=== PATIENT | male | born 1945 | race Caucasian/White ===

== ENCOUNTER 2018-01-13 13:56 | Outpatient (CLI) | payer BC, SELFPAY ==
[2018-01-13 14:23] LABS: Abs Immature Grans 0.01 k/cumm (0.0-0.09); Absolute Basophil Count 0.03 k/cumm (0.0-0.2); Absolute Lymphocyte Count 1.02 k/cumm (1.2-3.4); Absolute Monocyte Count 0.35 k/cumm (0.11-0.7); Absolute Neutrophil Count 3.53 k/cumm (1.2-6.7); Basophils % 0.6; HCT 41.1 % (40.0-50.0); HGB 13.8 g/dL (13.5-17.5); Immature Grans % 0.2; Lymphocytes % 20.2; Mean Corp. HGB Concentration 33.6 g/dL (32.0-36.0); Mean Corpuscular Hemoglobin 33.3 pg (27.0-33.0); Mean Platelet Volume 10.1 fL (8.0-11.0); Monocytes % 6.9; Neutrophils % 70.1; Platelet Count 186 x1000/uL (130-400); RBC 4.15 m/cumm (4.50-6.00); RBC Distribution Width 13.1 % (11.8-14.1); White Blood Cell Count 5.04 k/cumm (4.4-10.8)
[2018-01-13 14:35] LABS: ALT 46 U/L (12-78); AST 27 U/L (15-37); Albumin 3.3 g/dL (3.4-5.0); Alkaline Phosphatase 101 U/L (46-116); Anion Gap 7.7 mmol/L (3-11); BUN 17 mg/dL (7-18); Bilirubin, Total 0.3 mg/dL (0.2-1.0); CO2 29.3 mmol/L (21.0-32.0); CREATININE 1.28 mg/dL (0.70-1.30); Calcium 9.1 mg/dL (8.5-10.1); Chloride 103 mmol/L (98-107); Estimated GFR 54.94 (mL/min/1.73m2); Glucose 146 mg/dL (70-100); Potassium 3.6 mmol/L (3.5-5.1); Sodium 140 mmol/L (136-145); Total Protein 7.2 g/dL (6.4-8.2)
[2018-01-14 09:29] LABS: PSA, Diagnostic <0.1 ng/ml (0-6.5)
[2018-01-15 07:41] LABS: Testosterone, Total <7.0 ng/dL (240-950)
== END 2018-01-13 14:16 ==
PROVIDERS: PCP Emergency Medicine; Visit Provider Internal Medicine
DX: C61 Malignant neoplasm of prostate (principal)
CPT/HCPCS: 36415; 80053; 84403; 84153; 85025

== ENCOUNTER 2018-04-19 11:51 | Outpatient (CLI) | payer BC, MEDICARE, SELFPAY ==
[2018-04-19 12:25] LABS: ALT 46 U/L (12-78); AST 24 U/L (15-37); Albumin 3.4 g/dL (3.4-5.0); Alkaline Phosphatase 110 U/L (46-116); Anion Gap 10.4 mmol/L (3-11); BUN 16 mg/dL (7-18); Bilirubin, Total 0.3 mg/dL (0.2-1.0); CO2 27.6 mmol/L (21.0-32.0); CREATININE 1.31 mg/dL (0.70-1.30); Chloride 105 mmol/L (98-107); Estimated GFR 53.49 (mL/min/1.73m2); Glucose 109 mg/dL (70-100); Potassium 3.9 mmol/L (3.5-5.1); Sodium 143 mmol/L (136-145); Total Protein 7.1 g/dL (6.4-8.2)
[2018-04-19 12:35] LABS: HCT 40.7 % (40.0-50.0); HGB 13.4 g/dL (13.5-17.5); Mean Corp. HGB Concentration 32.9 g/dL (32.0-36.0); Mean Corpuscular Hemoglobin 31.9 pg (27.0-33.0); Mean Corpuscular Volume 96.9 fL (80-95)
[2018-04-19 12:36] LABS: Absolute Basophil Count 0.05 k/cumm (0.0-0.2); Absolute Eosinophil Count 0.05 k/cumm (0.0-0.7); Absolute Lymphocyte Count 1.24 k/cumm (1.2-3.4); Absolute Monocyte Count 0.32 k/cumm (0.11-0.7); Absolute Neutrophil Count 2.94 k/cumm (1.2-6.7); Atypical Lymphocytes % 3; Diff Comment Manual Differential; Mean Platelet Volume 11.2 fL (8.0-11.0); Platelet Count 197 x1000/uL (130-400); RBC Distribution Width 13.3 % (11.8-14.1); RBC Morphology Normal
[2018-04-20 09:16] LABS: PSA, Diagnostic <0.1 ng/ml (0-6.5)
[2018-04-22 14:34] LABS: Testosterone, Total 60 ng/dL (240-950)
== END 2018-04-19 12:11 ==
PROVIDERS: PCP Emergency Medicine; Visit Provider Internal Medicine
DX: C61 Malignant neoplasm of prostate (principal)
CPT/HCPCS: 36415; 80053; 84403; 84153; 85025

== ENCOUNTER 2018-10-10 15:57 | Outpatient (CLI) | payer BC, MEDICARE, SELFPAY ==
[2018-10-10 16:53] LABS: Abs Immature Grans 0.01 k/cumm (0.0-0.09); Absolute Basophil Count 0.03 k/cumm (0.0-0.2); Absolute Lymphocyte Count 1.31 k/cumm (1.2-3.4); Absolute Monocyte Count 0.45 k/cumm (0.11-0.7); Absolute Neutrophil Count 3.23 k/cumm (1.2-6.7); Basophils % 0.6; Eosinophils % 1.9; HCT 40.3 % (40.0-50.0); HGB 13.6 g/dL (13.5-17.5); Immature Grans % 0.2; Lymphocytes % 25.5; Mean Corp. HGB Concentration 33.7 g/dL (32.0-36.0); Mean Corpuscular Volume 94.8 fL (80-95); Mean Platelet Volume 10.6 fL (8.0-11.0); Monocytes % 8.8; Platelet Count 206 x1000/uL (130-400); RBC 4.25 m/cumm (4.50-6.00); RBC Distribution Width 13.6 % (11.8-14.1); White Blood Cell Count 5.13 k/cumm (4.4-10.8)
[2018-10-10 17:24] LABS: ALT 38 U/L (12-78); AST 18 U/L (15-37); Albumin 3.7 g/dL (3.4-5.0); Alkaline Phosphatase 116 U/L (46-116); Anion Gap 8.1 mmol/L (3-11); BUN 19 mg/dL (7-18); Bilirubin, Total 0.2 mg/dL (0.2-1.0); CO2 27.9 mmol/L (21.0-32.0); CREATININE 1.29 mg/dL (0.70-1.30); Calcium 9.3 mg/dL (8.5-10.1); Chloride 107 mmol/L (98-107); Glucose 111 mg/dL (70-100); Potassium 3.9 mmol/L (3.5-5.1); Sodium 143 mmol/L (136-145)
[2018-10-12 10:59] LABS: PSA, Diagnostic <0.1 ng/ml (0-6.5)
[2018-10-13 11:00] LABS: Testosterone, Total 225 ng/dL (240-950)
== END 2018-10-10 16:17 ==
PROVIDERS: PCP Emergency Medicine; Visit Provider Internal Medicine
DX: C61 Malignant neoplasm of prostate (principal)
CPT/HCPCS: 36415; 80053; 84403; 84153; 85025

== ENCOUNTER 2018-12-27 13:35 | Outpatient (CLI) | payer BC, MEDICARE, SELFPAY ==
[2018-12-27 14:34] LABS: Abs Immature Grans 0.01 k/cumm (0.0-0.09); Absolute Basophil Count 0.02 k/cumm (0.0-0.2); Absolute Eosinophil Count 0.07 k/cumm (0.0-0.7); Absolute Monocyte Count 0.34 k/cumm (0.11-0.7); Absolute Neutrophil Count 3.33 k/cumm (1.2-6.7); Basophils % 0.4; Eosinophils % 1.4; HCT 41.4 % (40.0-50.0); HGB 13.9 g/dL (13.5-17.5); Immature Grans % 0.2; Lymphocytes % 24.1; Mean Corp. HGB Concentration 33.6 g/dL (32.0-36.0); Mean Corpuscular Hemoglobin 32.4 pg (27.0-33.0); Mean Corpuscular Volume 96.5 fL (80-95); Mean Platelet Volume 10.5 fL (8.0-11.0); Monocytes % 6.8; Neutrophils % 67.1; Platelet Count 234 x1000/uL (130-400); RBC 4.29 m/cumm (4.50-6.00); RBC Distribution Width 13.3 % (11.8-14.1); White Blood Cell Count 4.97 k/cumm (4.4-10.8)
[2018-12-27 14:38] LABS: ALT 38 U/L (16-63); AST 21 U/L (15-37); Albumin 3.5 g/dL (3.4-5.0); Alkaline Phosphatase 91 U/L (46-116); Anion Gap 7.4 mmol/L (3-11); BUN 16 mg/dL (7-18); Bilirubin, Total 0.3 mg/dL (0.2-1.0); CO2 31.6 mmol/L (21.0-32.0); CREATININE 1.43 mg/dL (0.70-1.30); Calcium 8.9 mg/dL (8.5-10.1); Chloride 106 mmol/L (98-107); Estimated GFR 48.21 (mL/min/1.73m2); Glucose 108 mg/dL (70-100); Potassium 3.8 mmol/L (3.5-5.1); Sodium 145 mmol/L (136-145); Total Protein 7.1 g/dL (6.4-8.2)
[2018-12-28 10:20] LABS: PSA, Diagnostic <0.1 ng/ml (0-6.5)
[2018-12-30 10:38] LABS: Testosterone, Total 273 ng/dL (240-950)
== END 2018-12-27 13:55 ==
PROVIDERS: PCP Emergency Medicine; Visit Provider Internal Medicine
DX: C61 Malignant neoplasm of prostate (principal)
CPT/HCPCS: 36415; 80053; 84403; 84153; 85025

== ENCOUNTER 2019-04-06 15:22 | Outpatient (CLI) | payer BC, SELFPAY ==
[2019-04-06 15:57] LABS: Abs Immature Grans 0.01 k/cumm (0.0-0.09); Absolute Basophil Count 0.03 k/cumm (0.0-0.2); Absolute Eosinophil Count 0.15 k/cumm (0.0-0.7); Absolute Lymphocyte Count 1.37 k/cumm (1.2-3.4); Absolute Monocyte Count 0.49 k/cumm (0.11-0.7); Absolute Neutrophil Count 2.94 k/cumm (1.2-6.7); Basophils % 0.6; HCT 40.9 % (40.0-50.0); HGB 13.9 g/dL (13.5-17.5); Immature Grans % 0.2 %; Lymphocytes % 27.5; Mean Corpuscular Hemoglobin 32.9 pg (27.0-33.0); Mean Corpuscular Volume 96.7 fL (80-95); Mean Platelet Volume 10.4 fL (8.0-11.0); Monocytes % 9.8; Neutrophils % 58.9; Platelet Count 247 x1000/uL (130-400); RBC 4.23 m/cumm (4.50-6.00); RBC Distribution Width 13.6 % (11.8-14.1); White Blood Cell Count 4.99 k/cumm (4.4-10.8)
[2019-04-06 16:28] LABS: ALT 39 U/L (16-63); AST 24 U/L (15-37); Albumin 3.5 g/dL (3.4-5.0); Alkaline Phosphatase 127 U/L (46-116); Anion Gap 10.3 mmol/L (3-11); BUN 14 mg/dL (7-18); Bilirubin, Total 0.3 mg/dL (0.2-1.0); CO2 27.7 mmol/L (21.0-32.0); CREATININE 1.37 mg/dL (0.70-1.30); Calcium 8.8 mg/dL (8.5-10.1); Chloride 107 mmol/L (98-107); Estimated GFR 50.66 (mL/min/1.73m2); Glucose 113 mg/dL (74-106); Potassium 3.8 mmol/L (3.5-5.1); Sodium 145 mmol/L (136-145); Total Protein 6.7 g/dL (6.4-8.2)
[2019-04-07 10:28] LABS: PSA, Diagnostic <0.1 ng/mL (0.0-6.5)
[2019-04-09 17:05] LABS: Testosterone, Total 244 ng/dL (240-950)
== END 2019-04-06 15:42 ==
PROVIDERS: PCP Emergency Medicine; Visit Provider Internal Medicine
DX: C61 Malignant neoplasm of prostate (principal)
CPT/HCPCS: 36415; 80053; 84403; 84153; 85025

== ENCOUNTER 2019-07-13 00:54 | Outpatient (CLI) | payer BC, SELFPAY ==
--- NOTE | 2019-07-13 11:30 | DI.CT_ITS ---
EXAM: CT ABDOMEN AND PELVIS W CLINICAL HISTORY: LOW ABD PAIN AND PROSTATE CANCER, C61 TECHNIQUE: Imaging Protocol: Axial computed tomography images with coronal and sagittal reformatted images were created and reviewed CONTRAST MATERIAL: Intravenous: Omnipaque 350 Contrast volume:100 mL Oral: Yes COMPARISON: No exams were available for comparison FINDINGS: ABDOMEN: Lung Bases: Normal where visualized. Liver: Normal density. There are 4 well-circumscribed nonenhancing hypodense lesions scattered in the liver most consistent with cysts. No suspicious masses are appreciated. Portal, Superior Mesenteric, and Splenic Veins: Unremarkable. Gallbladder and Biliary Tract: Cholelithiasis. No biliary ductal dilatation. Pancreas: Normal density, no abnormal calcifications or inflammatory process. Spleen: Normal. Adrenals: No masses seen. Kidneys: Normal size, contour and axis. No radiodense stones or obstructive uropathy. No masses seen. Abdominal Aorta: Abdominal portion non-dilated. Atherosclerosis. Bowel: No obstruction or bowel wall thickening. Appendix is unremarkable. Colonic diverticulosis. Th ere is stranding seen associated with the soft tissues interposed between the sigmoid colon and the a djacent urinary bladder. Peritoneal Cavity: No ascites, collection or mesenteric inflammatory response. Lymph Nodes: Within normal limits. Bones: Degenerative changes are present. Soft Tissues: Fat-containing right inguinal hernia. PELVIS: Bladder: Incompletely distended. There is diffuse thickening of the wall of the urinary bladder. Ther e is inflammatory stranding seen around the urinary bladder. Reproductive Organs: Radiation seeds are seen within the prostate. Lymph Nodes: Within normal limits. Bones: Degenerative changes are present. IMPRESSION: 1. No evidence of metastatic disease. 2. Thickening of the wall of the urinary bladder. Inflammatory stranding seen around the urinary blad audrey and interposed between the sigmoid colon and the urinary bladder. This may reflect an infectious/ inflammatory cystitis, a mild colonic diverticulitis or post therapeutic changes. Please correlate cl inically. RADIATION DOSE DELIVERED: Total DLP DATA REPOSITORY: All CT scans at this facility are submitted to the National Radiology Data Registry (NRDR) Dose Index Registry (DIR) with the [employer] (ACR). RADIATION OPTIMIZATION: All CT scans at this facility use at least one of these dose optimization te chniques: automated exposure control; mA and/or kV adjustment per patient size (includes targeted exa ms where dose is matched to clinical indication); or iterative reconstruction.
[2019-07-13] MEDS: Breeza Beverage 473 ML BTL PO ×2 (11:43→11:44)
[2019-07-13] MEDS: Omnipaque 350 MG/ML 50 ML BTL PO (11:44)
[2019-07-13 12:54] LABS: HCT 42.4 % (40.0-50.0); HGB 14.2 g/dL (13.5-17.5); Mean Corp. HGB Concentration 33.5 g/dL (32.0-36.0); Mean Corpuscular Hemoglobin 32.3 pg (27.0-33.0); Mean Corpuscular Volume 96.4 fL (80-95); Mean Platelet Volume 9.6 fL (8.0-11.0); Platelet Count 260 x1000/uL (130-400); RBC Distribution Width 13.1 % (11.8-14.1); White Blood Cell Count 5.69 k/cumm (4.4-10.8)
[2019-07-13 13:03] LABS: ALT 45 U/L (16-63); AST 26 U/L (15-37); Albumin 3.5 g/dL (3.4-5.0); Alkaline Phosphatase 90 U/L (46-116); Anion Gap 4.4 mmol/L (3-11); BUN 10 mg/dL (7-18); Bilirubin, Total 0.4 mg/dL (0.2-1.0); CO2 30.6 mmol/L (21.0-32.0); CREATININE 1.28 mg/dL (0.70-1.30); Calcium 8.7 mg/dL (8.5-10.1); Chloride 103 mmol/L (98-107); Estimated GFR 54.79 (mL/min/1.73m2); Glucose 106 mg/dL (74-106); Potassium 3.8 mmol/L (3.5-5.1); Sodium 138 mmol/L (136-145); Total Protein 7.6 g/dL (6.4-8.2)
[2019-07-13] MEDS: Omnipaque 350 MG/ML 100 ML BTL IJ (13:41)
[2019-07-13 13:51] LABS: Bilirubin Negative (Negative); Blood Negative (Negative); Clarity Clear (Clear); Glucose Negative (Negative); Ketones Negative (Negative); Leukocyte Esterase Negative (Negative); Nitrite Negative (Negative); Specific Gravity 1.025 (1.005-1.025); Urobilinogen 0.2 EU/dL (Up TO 0.2); pH 6.5 (5-8)
[2019-07-13 14:20] LABS: Bacteria Negative HPF (Negative); C & S Indicated? No; Casts Negative LPF (Negative); Crystals Negative HPF (Negative); Epithelial Cells Negative HPF (Negative); Mucus Heavy (Negative); Other Cells Rare Renal (Negative); RBC 0-2 HPF (0-2)
[2019-07-14 09:19] LABS: PSA, Diagnostic <0.1 ng/mL (0.0-6.5)
== END 2019-07-13 01:14 ==
PROVIDERS: PCP Emergency Medicine; Visit Provider Emergency Medicine
DX: C61 Malignant neoplasm of prostate (principal); R30.0 Dysuria; R10.30 Lower abdominal pain, unspecified; K76.89 Other specified diseases of liver; K80.20 Calculus of gallbladder without cholecystitis without obstruction; N32.89 Other specified disorders of bladder
CPT/HCPCS: 36415; 80053; 85027; 74177; 81003; 81015; 84153; J3490; Q9967

== ENCOUNTER 2019-08-18 08:23 | Day surgery (SDC) | payer BC, SELFPAY ==
[2019-08-18 08:47] VITALS: BP 130/70; PULSE 75; RESP 16; TEMP 36.6; O2SAT 94
[2019-08-18] MEDS: Lactated Ringers 1,000 ML 80 ML IV (09:04)
--- NOTE | 2019-08-18 09:35 | W.PM.DSUDISC ---
Discharge Plan Disposition Patient Disposition: HOME Condition: Good Discharge Details Reason For Visit: Colonoscopy Attending Provider: Ekta Oneill Primary Care Provider: Geovanni Ramos Home Meds and New Rx's Prescriptions: Continued diclofenac sodium [Voltaren] 100 GM gel 100 gm Topical BID Qty: 1 RF: 4 tamsulosin [Flomax] 0.4 MG capsule 0.8 mg PO DAILY Qty: 180 RF: 3 triamcinolone acetonide 80 GM ointment 80 gm Topical BID Qty: 1 RF: 4 amlodipine 5 mg tablet 5 mg PO DAILY Qty: 90 RF: 4 rosuvastatin [Crestor] 10 mg tablet 10 mg PO DAILY Qty: 90 RF: 3 escitalopram oxalate 20 mg tablet 20 mg PO DAILY Qty: 90 RF: 3 Discontinued polyethylene glycol 3350 17 gram/dose powder 238 g PO ONCE Qty: 238 RF: 0 bisacodyl [Dulcolax (bisacodyl)] 5 mg tablet,delayed release (DR/EC) 5 mg PO ONCE Qty: 4 RF: 0 Discharge Instructions Additional Instructions: Findings: Three small polyps were removed. My office will contact you with biopsy results. Moderate diverticular change was present in the sigmoid colon and may be related to your lower abdominal discomfort. Follow up: Plan for a follow up colonoscopy in 3-5 years depending on biopsy results. Please call if you develop: fevers >101.5 Nausea or Vomiting Abdominal pain that is not transient DAY SURGERY UNIT POST COLONOSCOPY INSTRUCTIONS 1. Because there will be medication in your system for the next 24 hours, you may feel a little sleepy. Your coordination will be affected. Therefore: a. Do not drive or operate dangerous equipment for 24 hours. b. Do not drink alcohol beverages for 24 hours (not even beer). c. Plan to go home and rest for the day. 2. Generally there are no restrictions on your activity after a day or so has gone by, but you may feel a bit fatigued for a few days. 3 After you arrive home you may have a light meal and return to a normal diet as you can tolerate it without feeling sick to your stomach. 4. After surgery, you may feel pain or discomfort. This should be only transient, but if it persists please contact your doctor. 5. If there are any questions regarding the findings of your procedure, please feel free to contact your doctor. 6. If you are unable to contact your doctor with a problem, contact the hospital at [phone]. 9. Continue all your regular medications unless directed otherwise. I understand the above instructions and have no questions. Signature of Patient or Responsible Adult Escort Date/Time Name of Responsible Adult Escort Signature of Nurse Date/Time Activity:: Activity as Tolerated Diet:: As Tolerated Discharge Orders Discharge Orders: Discharge Order (Routine); Ordered 08/18/19 Ordered By: Ekta Oneill DS: Diagnosis Discharge Diagnosis (1) Polyp of colon: Status: Acute (2) Diverticulosis: Status: Acute
--- NOTE | 2019-08-18 09:37 | W.PM.OP ---
Date of service: 08/18/19 Time of Service: 10:33 Operative Note Operative Note DATE OF PROCEDURE: 08/18/19 PRE-OP DIAGNOSIS: History of polyps Lower abdominal pain Colon polyps Diverticulosis PROCEDURE: Colonoscopy SURGEON: Ekta Oneill ANESTHESIA: MAC Indications: This patient had colon polyps in 2012. He has noted some lower abdominal discomfort that is relieved by having a bowel movement. Procedure Description: The patient was placed in the left Fu position. Propofol was titrated to sedation. Digital rectal examination revealed no abnormalities. The scope was advanced to the cecum without difficulty. The ileocecal valve and appendiceal orifice were clearly identified. The prep was good. In the cecum near the appendiceal orifice a less than 1 cm polyp was removed with the snare and retrieved for pathology. Minimal cautery was used here and a hemostatic clip applied. There was an additional less than 1 cm polyp across from the ileocecal valve that was removed with the snare and retrieved and sent in the same specimen container. In the mid ascending colon a third less than 1 cm polyp was removed with the snare and retrieved for pathology. No abnormalities were seen through the transverse or descending colon. In the sigmoid region he had moderate diverticular change with some hyperemia of the mucosa. This may be reflect some mild resolving inflammation. The rectum was normal including on retroflexed view. The patient tolerated the procedure well and was stable to recovery. Plan for follow up colonoscopy in 5 years or sooner if symptoms indicate. If his symptoms persist, he can try a course of antibiotics or also consider follow up with urology.
--- NOTE | 2019-08-18 09:59 | BOWEL_PTH ---
PATIENT: Glen Schulte JR LOC: [facility] U#:[id number] AGE/SX: 73/M ROOM: RE08/18/[address]: Ekta Oneill MD : 1945 BED: DIS: 08/18/2019 SPEC #: [id number] RECD: 08/18/19 11:58 STATUS: ARSALAN REQ #: [id number] NATHALIE: 08/18/19 09:[address]: Ekta Oneill DEPT: Surgical Specimen RECD BY: Shea Rodriguez ENTERED: 08/18/19 11:59 SP TYPE: Bowel OTHR DR: Geovanni Ramos DO Tissues: 1 - BIOPSY BOWEL 2 - BIOPSY BOWEL Procedures: GROSS AND MICRO LEVEL 4 Comments: [id number]
[2019-08-18 10:58] VITALS: BP 104/51; PULSE 62; RESP 16; TEMP 36.2; O2SAT 93
== END 2019-08-18 11:45 | disposition home or self-care (01) ==
PROVIDERS: PCP Emergency Medicine; Visit Provider Surgery
PROC: 0DJD8ZZ Inspection of Lower Intestinal Tract, Via Natural or Artificial Opening Endoscopic (ICD-10-PCS; CPT 45378; principal; 2019-08-18 09:45)
DX: Z12.11 Encounter for screening for malignant neoplasm of colon (principal); Z86.010 Personal history of colon polyps; R10.30 Lower abdominal pain, unspecified; K57.30 Diverticulosis of large intestine without perforation or abscess without bleeding; D12.0 Benign neoplasm of cecum; D12.2 Benign neoplasm of ascending colon
CPT/HCPCS: 45385; 88305; J2704

== ENCOUNTER 2019-08-29 00:18 | Outpatient (CLI) | payer BC, SELFPAY ==
--- NOTE | 2019-08-29 06:30 | DI.US_ITS ---
EXAM: US ABDOMEN CLINICAL HISTORY: Epigastric pain,R10.13 TECHNIQUE: Ultrasound performed using standard protocol. COMPARISON: CT CT ABDOMEN PELVIS W from 07/13/2019 FINDINGS: The liver is enlarged and shows increased echogenicity, consistent with fatty infiltration. Liver c ysts are again noted. The there is no biliary dilatation. The gallbladder shows multiple stones but no wall thickening. There is echogenic focus in the gallbladder wall with ring down artifact which may represent adenomyomatosis. The visualized portions of the pancreas are unremarkable. IMPRESSION: Cholelithiasis. No evidence of acute cholecystitis. Hepatic steatosis. DATA REPOSITORY:
== END 2019-08-29 00:38 ==
PROVIDERS: PCP Emergency Medicine; Visit Provider Surgery
DX: R10.13 Epigastric pain (principal); K80.20 Calculus of gallbladder without cholecystitis without obstruction; K76.0 Fatty (change of) liver, not elsewhere classified
CPT/HCPCS: 76700

== ENCOUNTER 2019-10-10 03:28 | Outpatient (CLI) | payer BC, SELFPAY ==
[2019-10-10 13:36] LABS: Abs Immature Grans 0.04 10^3/uL (0.0-0.06); Absolute Basophil Count 0.03 10^3/uL (0.0-0.2); Absolute Lymphocyte Count 1.43 10^3/uL (1.2-3.4); Absolute Monocyte Count 0.61 10^3/uL (0.1-0.8); Absolute Neutrophil Count 8.44 10^3/uL (1.2-6.7); Basophils % 0.3; Eosinophils % 0.9; HCT 40.8 % (40.0-50.0); HGB 13.9 g/dL (13.5-17.5); Immature Grans % 0.4; Lymphocytes % 13.4; MCH 32.8 pg (27.0-33.0); MCHC 34.1 % (32.0-36.0); MCV 96.2 fL (80-95); MPV 9.9 fL (8.0-11.0); Monocytes % 5.7; Neutrophils % 79.3 %; Platelet Count 256 10^3/uL (130-400); RBC 4.24 10^6/uL (4.36-5.78); RDW 13.3 % (11.8-14.1); RDW-SD 47.6 fL; WBC 10.65 10^3/uL (4.4-10.8)
[2019-10-10 14:39] LABS: ALT 33 U/L (16-63); AST 21 U/L (15-37); Albumin 3.6 g/dL (3.4-5.0); Alkaline Phosphatase 84 U/L (46-116); Anion Gap 10.2 mmol/L (3-11); BUN 18 mg/dL (7-18); Bilirubin, Total 0.3 mg/dL (0.2-1.0); CO2 26.8 mmol/L (21.0-32.0); CREATININE 1.31 mg/dL (0.70-1.30); Calcium 8.7 mg/dL (8.5-10.1); Chloride 104 mmol/L (98-107); Glucose 161 mg/dL (74-106); Potassium 3.8 mmol/L (3.5-5.1); Sodium 141 mmol/L (136-145); Total Protein 6.7 g/dL (6.4-8.2)
[2019-10-11 18:51] LABS: PSA, Ultrasensitive 0.08 ng/mL (<= 6.5)
[2019-10-13 14:12] LABS: Testosterone, Total 252 ng/dL (240-950)
== END 2019-10-10 03:48 ==
PROVIDERS: PCP Emergency Medicine; Visit Provider Internal Medicine
DX: Z85.46 Personal history of malignant neoplasm of prostate (principal)
CPT/HCPCS: 36415; 80053; 84153; 84403; 85025

== ENCOUNTER 2019-10-19 13:26 | Outpatient (REF) | payer BC, SELFPAY ==
[2019-10-20 11:02] LABS: Campylobacter PCR Negative (Negative); Salmonella PCR Negative (Negative); Shiga Toxin PCR Negative (Negative); Shigella/Enteroinvasive Ecoli Negative (Negative)
== END 2019-10-19 13:46 ==
LOC: LBN 13:26
PROVIDERS: PCP Emergency Medicine; Visit Provider Emergency Medicine
DX: R19.7 Diarrhea, unspecified (principal); R10.13 Epigastric pain
CPT/HCPCS: 87329; 87505; 87324

== ENCOUNTER 2019-10-31 02:37 | Outpatient (CLI) | payer BC, SELFPAY ==
[2019-11-01 15:51] LABS: IgA 168 mg/dL (85-499); Interpretation (See Note); Tissue Transglutaminase IgA <1.2 U/mL (<4.0)
[2019-11-03 10:50] LABS: Campylobacter PCR Negative (Negative); Salmonella PCR Negative (Negative); Shiga Toxin PCR Negative (Negative); Shigella/Enteroinvasive Ecoli Negative (Negative)
== END 2019-10-31 02:57 ==
PROVIDERS: PCP Emergency Medicine; Visit Provider Surgery
DX: R19.4 Change in bowel habit (principal); R10.30 Lower abdominal pain, unspecified
CPT/HCPCS: 36415; 82784; 83516; 87505; 87324

== ENCOUNTER 2020-01-23 12:54 | Outpatient (CLI) | payer BC, SELFPAY ==
[2020-01-23 13:18] LABS: Abs Immature Grans 0.01 10^3/uL (0.0-0.06); Absolute Basophil Count 0.04 10^3/uL (0.0-0.2); Absolute Lymphocyte Count 1.26 10^3/uL (1.2-3.4); Absolute Monocyte Count 0.48 10^3/uL (0.1-0.8); Absolute Neutrophil Count 3.36 10^3/uL (1.2-6.7); Basophils % 0.8; Eosinophils % 1.9; HCT 42.7 % (40.0-50.0); HGB 14.5 g/dL (13.5-17.5); Immature Grans % 0.2; MCH 32.7 pg (27.0-33.0); MCV 96.2 fL (80-95); MPV 10.3 fL (8.0-11.0); Monocytes % 9.1; Nucleated RBC 0 %; Platelet Count 215 10^3/uL (130-400); RBC 4.44 10^6/uL (4.36-5.78); RDW-SD 46.5 fL; WBC 5.25 10^3/uL (4.4-10.8)
[2020-01-23 13:29] LABS: ALT 35 U/L (16-63); AST 24 U/L (15-37); Albumin 3.6 g/dL (3.4-5.0); Alkaline Phosphatase 76 U/L (46-116); Anion Gap 7.3 mmol/L (3-11); BUN 12 mg/dL (7-18); Bilirubin, Total 0.5 mg/dL (0.2-1.0); CO2 28.7 mmol/L (21.0-32.0); CREATININE 1.23 mg/dL (0.70-1.30); Calcium 8.7 mg/dL (8.5-10.1); Chloride 106 mmol/L (98-107); Estimated GFR 57.21 (mL/min/1.73m2); Glucose 107 mg/dL (74-106); Potassium 3.7 mmol/L (3.5-5.1); Sodium 142 mmol/L (136-145)
[2020-01-24 16:25] LABS: PSA, Ultrasensitive 0.14 ng/mL (<= 6.5)
[2020-01-26 13:01] LABS: Testosterone, Total 308 ng/dL (240-950)
== END 2020-01-23 13:14 ==
PROVIDERS: PCP Emergency Medicine; Visit Provider Internal Medicine
DX: C61 Malignant neoplasm of prostate (principal)
CPT/HCPCS: 36415; 80053; 84153; 84403; 85025

== ENCOUNTER 2021-07-14 02:44 | Outpatient (CLI) | payer BC, SELFPAY ==
[2021-07-14 12:27] LABS: Bilirubin Negative (Negative); Blood Negative (Negative); Clarity Clear (Clear); Glucose Negative (Negative); HCT 43.6 % (40.0-50.0); HGB 14.8 g/dL (13.5-17.5); Ketones Negative (Negative); Leukocyte Esterase Negative (Negative); MCH 33.4 pg (27.0-33.0); MCHC 33.9 % (32.0-36.0); MCV 98 fL (80-95); MPV 11.2 fL (8.0-11.0); Nitrite Negative (Negative); Platelet Count 207 10^3/uL (130-400); RBC 4.43 10^6/uL (4.36-5.78); Specific Gravity >= 1.030 (1.005-1.025); Urobilinogen 0.2 EU/dL (Up TO 0.2); WBC 5.16 10^3/uL (4.4-10.8); pH 5.5 (5-8)
[2021-07-14 12:51] LABS: ALT 39 U/L (16-63); AST 25 U/L (15-37); Albumin 3.7 g/dL (3.4-5.0); Alkaline Phosphatase 97 U/L (46-116); Anion Gap 8.8 mmol/L (3-11); BUN 21 mg/dL (7-18); Bilirubin, Total 0.6 mg/dL (0.2-1.0); C-Reactive Protein 0.27 mg/dL (0.0-0.3); CO2 28.2 mmol/L (21.0-32.0); CREATININE 1.4 mg/dL (0.70-1.30); Calculated LDL 32 mg/dL (<100); Chloride 106 mmol/L (98-107); Cholesterol 133 mg/dL (<200); Estimated GFR 49.14 (mL/min/1.73m2); Glucose 97 mg/dL (74-106); HDL Cholesterol 51 mg/dL (40-60); Lipase 298 U/L (73-393); Potassium 4.3 mmol/L (3.5-5.1); Sodium 143 mmol/L (136-145); Total Protein 6.7 g/dL (6.4-8.2); Triglyceride 254 mg/dL (<150)
[2021-07-14 13:04] LABS: Amylase 105 U/L (25-115)
[2021-07-14 22:12] LABS: PSA, Diagnostic 0.4 ng/mL (<=6.5)
== END 2021-07-14 02:45 | disposition home or self-care (01) ==
LOC: LOS 02:44
PROVIDERS: PCP Family Medicine; Visit Provider Emergency Medicine
DX: R53.83 Other fatigue (principal); E78.5 Hyperlipidemia, unspecified; I10 Essential (primary) hypertension; C61 Malignant neoplasm of prostate; R30.0 Dysuria
CPT/HCPCS: 36415; 80053; 80061; 83690; 85027; 81003; 82150; 84153; 86140

== ENCOUNTER 2021-12-18 02:26 | Outpatient (CLI) | payer BC, SELFPAY ==
[2021-12-18 22:32] LABS: PSA, Diagnostic 0.7 ng/mL (<=6.5)
== END 2021-12-18 02:27 | disposition home or self-care (01) ==
LOC: LOS 02:26
PROVIDERS: PCP Family Medicine; Visit Provider Family Medicine
DX: Z85.46 Personal history of malignant neoplasm of prostate (principal)
CPT/HCPCS: 36415; 84153

== ENCOUNTER 2022-08-28 02:46 | Outpatient (CLI) | payer BC, SELFPAY ==
[2022-08-28 12:18] LABS: Abs Immature Grans 0.01 10^3/uL (0.0-0.06); Absolute Basophil Count 0.03 10^3/uL (0.0-0.2); Absolute Lymphocyte Count 1.79 10^3/uL (1.2-3.4); Absolute Neutrophil Count 3.16 10^3/uL (1.2-6.7); Basophils % 0.5; Eosinophils % 1.8; HCT 43.1 % (40.0-50.0); HGB 15.3 g/dL (13.5-17.5); Immature Grans % 0.2; MCH 34.6 pg (27.0-33.0); MCHC 35.5 % (32.0-36.0); MCV 98 fL (80-95); MPV 9.8 fL (8.0-11.0); Monocytes % 8.9; Neutrophils % 56.6; Platelet Count 210 10^3/uL (130-400); RBC 4.42 10^6/uL (4.36-5.78); RDW 11.9 % (11.8-14.1); RDW-SD 42.9 fL; WBC 5.59 10^3/uL (4.4-10.8)
[2022-08-28 12:25] LABS: ESR 4 mm/hr (0-20)
[2022-08-28 12:57] LABS: Albumin 3.5 g/dL (3.4-5.0); Alkaline Phosphatase 90 U/L (46-116); Anion Gap 10.4 mmol/L (3-11); BUN 15 mg/dL (7-18); Bilirubin, Total 0.3 mg/dL (0.2-1.0); CO2 26.6 mmol/L (21.0-32.0); CREATININE 1.5 mg/dL (0.70-1.30); Calcium 8.6 mg/dL (8.5-10.1); Chloride 107 mmol/L (98-107); Estimated GFR 47.06 (mL/min/1.73m2); Glucose 138 mg/dL (74-106); Potassium 3.8 mmol/L (3.5-5.1); Sodium 144 mmol/L (136-145); TSH (W/Ref FT4) 1.64 uIU/mL (0.36-3.74)
[2022-08-28 12:59] LABS: C-Reactive Protein < 0.05 mg/dL (0.0-0.3)
[2022-08-28 13:10] LABS: ALT 21 U/L (16-63); AST 14 U/L (15-37)
== END 2022-08-28 02:47 | disposition home or self-care (01) ==
LOC: LBO 02:46
PROVIDERS: PCP Family Medicine; Visit Provider Family Medicine
DX: R53.83 Other fatigue (principal)
CPT/HCPCS: 36415; 80053; 85652; 84443; 85025; 86140

== ENCOUNTER 2022-11-05 16:59 | Outpatient (REF) | payer BC, SELFPAY | END 2022-11-05 17:00 | disposition home or self-care (01) | LOC: LBN 16:59 | PROVIDERS: PCP Family Medicine; Visit Provider Nurse Practitioner Family | DX: J02.9 Acute pharyngitis, unspecified (principal) | CPT/HCPCS: 87070 ==

== ENCOUNTER 2023-03-27 18:10 | Emergency (ER) | payer BC, SELFPAY ==
--- NOTE | 2023-03-27 18:15 | DI.CT_ITS ---
Exam(s) CT HEAD CERVICAL SPINE WO EXAM: CT HEAD CERVICAL SPINE WO CLINICAL HISTORY: fell on ice, pain. TECHNIQUE: Imaging Protocol: Axial computed tomography images with coronal and sagittal reformatted images were created and reviewed COMPARISON: No exams were available for comparison FINDINGS: BRAIN: There are no skull fractures nor fluid in the visualized paranasal sinuses. There is no evidence of intracranial hemorrhage, mass effect, or shift of midline structures. There are no extra-axial fluid collections. The ventricles are not enlarged or shifted and there is no blo od within the ventricular system nor within the basal cisterns. CERVICAL SPINE: There is no evidence of fracture nor listhesis. No significant prevertebral soft tissue swelling. There is chronic disc space narrowing at C5-6 and C6-7 levels. There is some facet arthropathy but n o facet malalignment. There is no significant facet joint malalignment. No significant osseous lesions evident. Mild reversal of the normal curvature noted, probably related to muscle spasm. IMPRESSION: No acute intracranial findings on this noninfused CT scan of the brain. No evidence of cervical spine fracture, malalignment, nor acute compromise of the cervical spinal can al. Chronic degenerative disc disease noted. Called to ER physician 03/27/2023 7:15 p.m. RADIATION DOSE DELIVERED: 1,345.18mGy.cm Total DLP DATA REPOSITORY: All CT scans at this facility are submitted to the National Radiology Data Registry (NRDR) Dose Index Registry (DIR) with the [employer] (ACR). RADIATION OPTIMIZATION: All CT scans at this facility use at least one of these dose optimization te chniques: automated exposure control; mA and/or kV adjustment per patient size (includes targeted exa ms where dose is matched to clinical indication); or iterative reconstruction.
[2023-03-27 18:19] VITALS: BP 176/83; PULSE 78; RESP 16; TEMP 36.7; O2SAT 92
--- NOTE | 2023-03-27 18:27 | ED.GENADUL_ITS ---
HPI General Stated Complaint: Trauma Mode of arrival: ambulatory. MYA: 3 Date/Time Provider Initiated Documentation: 03/27/23 18:11. Limitations to Documentation: no limitations. Information obtained by: patient. History of Present Illness head pain s/p fall on ice moderate head reports no radiation hour(s) (1) constant No relieving factors improve symptom(s), No exacerbating factors reported no other symptoms. none Related Data Home Medications Medication Instructions Recorded Confirmed triamcinolone acetonide 0.025 % 80 gm topical BID ##1 07/30/17 03/27/23 topical ointment diclofenac sodium 3 % topical gel 1 applic topical BID PRN actinic 09/03/21 03/27/23 keratoses escitalopram oxalate 20 mg tablet See Rx Instructions .Route 06/26/22 03/27/23 .COMPLEX #90 tabs rosuvastatin 10 mg tablet See Rx Instructions .Route 06/26/22 03/27/23 .COMPLEX #90 tabs amlodipine 5 mg tablet 5 mg PO DAILY #90 tab-caps 08/19/22 03/27/23 tamsulosin 0.4 mg capsule (Flomax) 0.8 mg (2 x 0.4 mg) PO DAILY #180 08/19/22 03/27/23 tab-caps Previous Rx's Medication Instructions Recorded triamcinolone acetonide 0.025 % 80 gm topical BID ##1 07/30/17 topical ointment escitalopram oxalate 20 mg tablet See Rx Instructions .Route 06/26/22 .COMPLEX #90 tabs rosuvastatin 10 mg tablet See Rx Instructions .Route 06/26/22 .COMPLEX #90 tabs amlodipine 5 mg tablet 5 mg PO DAILY #90 tab-caps 08/19/22 tamsulosin 0.4 mg capsule (Flomax) 0.8 mg (2 x 0.4 mg) PO DAILY #180 08/19/22 tab-caps Allergies Allergy/AdvReac Type Severity Reaction Status Date / Time No Known Drug Allergies Allergy Verified 03/27/23 18:23 Review of Systems All systems reviewed & are unremarkable except as noted in HPI and below Constitutional Constitutional: Denies chills, Denies fever(s) and Denies weakness Cardiovascular Cardiovascular: Denies chest pain and Denies dyspnea Respiratory Respiratory: Denies cough and Denies dyspnea Gastrointestinal Gastrointestinal: Denies abdominal pain, Denies nausea and Denies vomiting Musculoskeletal Musculoskeletal: Denies joint swelling Neurologic Neurologic: Denies weakness PFSH All Active Problems (Updated 03/27/23 @ 19:30 by Cricket Mills MD) Head trauma (Acute) Asymmetrical sensorineural hearing loss (Acute) Impacted cerumen, right ear (Acute) Wears hearing aid in both ears (Chronic) Concussion (Chronic) 5 concussions due to figure skating falls 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 History of prostate cancer (Chronic) s/p radiation, followed in [place]. Tubular adenoma (Chronic) 08/18/19, Dr. Oniell, 5 year recall Asymmetrical left sensorineural hearing loss (Chronic) declines use of hearing aids Impacted cerumen of both ears (Chronic) follows with Dr. Altman Actinic keratosis (Chronic) manages with diclofenac gel 3% Essential hypertension (Chronic 12/26/12) Hyperlipidemia (Chronic) Medical History Diverticulosis Umbilical hernia Family History Grandfather Personal history of malignant neoplasm Grandfather Heart disease Grandmother Personal history of malignant neoplasm Son No problems noted. Son No problems noted. Daughter No problems noted. 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 Pets and animals: Yes Pets and animals: cat(s), dog(s), horse(s) and farm animals Sexually active: No Do you think of yourself as: bisexual Current gender identity: male What is your relationship status?: How often do you talk on the phone with friends or family?: three or more times per week How often do you get together with friends or relatives?: twice per week Do you belong to any clubs or organized social groups?: no Panel score (0-1 are the most socially isolated patients): 2 What type of physical activity do you participate in: swimming and other Details: Skating,[employer] Duration: 45-60 minutes/day Frequency: 3-4 times per week Evelyn/Zoroastrianism: None Do you feel safe at home: Yes Do you feel safe in your relationship?: Yes Additional Social history: Enjoys figure skating, hoping to ski this winter. Exam Const General: no acute distress Orientation: alert HENDC Head: no palpable skull fracture and normocephalic Ears: external ears normal General nose exam: external nose normal Mouth: moist mucous membranes Eyes General: appearance normal, both eyes and all related structures Neck Neck: normal visual inspection Resp Effort & Inspection: normal respiratory effort and able to speak in complete sentences Cardio Rate: regular rate Skin General skin exam: no rashes or lesions noted Neuro General: patient alert and patient oriented x3 Extrem General: normal to inspection Psych Mental Status: mental status grossly normal Course Vital Signs Vital signs: Vital Signs Temperature 36.7 C 03/27/23 18:19 Pulse 78 03/27/23 18:19 Respiratory Rate 16 03/27/23 18:19 Blood Pressure 176/83 H 03/27/23 18:19 Pulse Oximetry 92 03/27/23 18:19 Temperature 36.7 C 03/27/23 18:19 Pulse 78 03/27/23 18:19 Respiratory Rate 16 03/27/23 18:19 Blood Pressure 176/83 H 03/27/23 18:19 Pulse Oximetry 92 03/27/23 18:19 Oxygen Delivery Method Room Air 03/27/23 18:19 Oxygen Flow Rate 0 03/27/23 18:19 Pain Level 1 03/27/23 18:19 Medical Decision Making 77 yo male who denies being on any anticoagulation comes in after he fell ice skating. He states he is going to be going through a test for [place] figure skating and can't wear a helmet during this was practicing today skating and fell backwards striking his posterior head, question of brief loc. He denies preceding symptoms such as dizziness, chest pain or dyspnea. He feels well now and had mild posterior head pain where he has a 3cm scalp hematoma, no lacs or abrasions, has right lateral neck discomfort. No chest pain, abdomen pain or back pain or extremity pain. caox4 speaking clearly, perrl, eomi. Given age and fall will obtain ct head and c spine. imaging negative, pt asymptomatic now and is caox4 without pain, stable for d/c, advised to see pcp if signs of concussion and return preacutions given Differential Diagnosis Differential Diagnosis: tbi, concussion Imaging Data Radiologic Study: Attestation: I personally reviewed and interpreted this imaging study as follows: Imaging: CT Scan Radiologist's impression: FINDINGS: BRAIN: There are no skull fractures nor fluid in the visualized paranasal sinuses. There is no evidence of intracranial hemorrhage, mass effect, or shift of midline structures. There are no extra-axial fluid collections. The ventricles are not enlarged or shifted and there is no blood within the ventricular system nor within the basal cisterns. CERVICAL SPINE: There is no evidence of fracture nor listhesis. No significant prevertebral soft tissue swelling. There is chronic disc space narrowing at C5-6 and C6-7 levels. There is some facet arthropathy but no facet malalignment. There is no significant facet joint malalignment. No significant osseous lesions evident. Mild reversal of the normal curvature noted, probably related to muscle spasm. IMPRESSION: No acute intracranial findings on this noninfused CT scan of the brain. No evidence of cervical spine fracture, malalignment, nor acute compromise of the cervical spinal canal. Chronic degenerative disc disease noted. Quality:SDOH Health Related Social Needs: No Data to Display Discharge Plan Disposition Patient Disposition: Home Condition: Stable Discharge Details Clinical Impression: Head trauma Primary Care Provider: Elaina Beltran ED Provider: Cricket Mills [place] Meds and New Rx's Prescriptions: Continued diclofenac sodium 3 % gel 1 applic topical BID PRN (Reason: actinic keratoses) tamsulosin [Flomax] 0.4 mg capsule 0.8 mg PO DAILY Qty: 180 3RF amlodipine 5 mg tablet 5 mg PO DAILY Qty: 90 3RF triamcinolone acetonide 80 GM ointment 80 gm Topical BID Qty: 1 4RF rosuvastatin 10 mg tablet See Rx Instructions .ROUTE .COMPLEX Qty: 90 3RF Dose Instruction: TAKE ONE TABLET BY MOUTH EVERY DAY Rx Instructions: TAKE ONE TABLET BY MOUTH EVERY DAY escitalopram oxalate 20 mg tablet See Rx Instructions .ROUTE .COMPLEX Qty: 90 3RF Dose Instruction: TAKE ONE TABLET BY MOUTH EVERY DAY Rx Instructions: TAKE ONE TABLET BY MOUTH EVERY DAY Discharge Instructions Instructions: Head Injury (ED) Additional Instructions: your cat scan did not show concerning findings follow up with your primary care provider within 1-2 weeks if you have persistent headaches or issues with your memory return to the emergency department if you have severe worsening pain, or new pain such as chest pain or abdominal pain
== END 2023-03-27 19:57 | disposition home or self-care (01) ==
PROVIDERS: Emergency Provider Emergency Medicine; PCP Family Medicine
DX: S00.03XA Contusion of scalp, initial encounter (principal); M54.2 Cervicalgia; W00.0XXA Fall on same level due to ice and snow, initial encounter; Y93.21 Activity, ice skating
CPT/HCPCS: 99284; 70450; 72125; 99283

== ENCOUNTER 2024-09-14 16:09 | Outpatient (REF) | payer BC, SELFPAY ==
[2024-09-14 21:58] LABS: Anion Gap 8.4 mmol/L (3-11); BUN 20 mg/dL (7-18); CO2 29.6 mmol/L (21.0-32.0); Calcium 9.0 mg/dL (8.5-10.1); Chloride 104 mmol/L (98-107); Estimated GFR 46.48 (mL/min/1.73m2); Glucose 87 mg/dL (74-106); Potassium 4.3 mmol/L (3.5-5.1); Sodium 142 mmol/L (136-145)
== END 2024-09-14 16:10 | disposition home or self-care (01) ==
LOC: LBN 16:09
PROVIDERS: PCP Family Medicine; Visit Provider Family Medicine
DX: I10 Essential (primary) hypertension (principal)
CPT/HCPCS: 80048

== ENCOUNTER 2025-02-28 08:30 | Day surgery (SDC) | payer MEDICARE, SELFPAY ==
[2025-02-26 10:57] VITALS: BP 141/83; PULSE 73; RESP 16; TEMP 36.4; O2SAT 93
[2025-02-28] MEDS: Lactated Ringers 1,000 ML 80 ML IV (09:22)
--- NOTE | 2025-02-28 10:14 | ANES.PREOP_ITS ---
General Info Date of Service Date Performed: 02/28/25 Height: 5 ft 8 in Weight: 90 kg Body Mass Index (BMI): 30.2 Surgical Procedure: Operation Date: 02/28/25 09:50 Proposed Procedure Side Surgeon chanda Tipton MD Meds Allergies and Home Medications Allergies Allergy/AdvReac Type Severity Reaction Status Date / Time No Known Allergies Allergy Verified 02/28/25 08:55 Home Medication ?Medication ?Instructions ?Recorded diclofenac sodium 3 % topical gel 1 applic topical BID PRN actinic 09/03/21 keratoses triamcinolone acetonide 0.025 % 1 applic topical BID # 80 grams 02/08/24 topical ointment escitalopram oxalate 20 mg tablet See Rx Instructions .Route 06/14/24 .COMPLEX #90 tabs rosuvastatin 10 mg tablet 10 mg PO DAILY #90 tabs 05/0 05/09 amlodipine 5 mg tablet 5 mg PO DAILY #90 tab-caps 0 09/14/24 tamsulosin 0.4 mg capsule (Flomax) 0.8 mg (2 x 0.4 mg) PO DAILY #180 09/14/24 tab-caps Current Visit Medications: Current Medications Generic Name Dose Route Start Last Admin Trade Name Freq PRN Reason Stop Dose Admin Ringer's Solution 1,000 mls @ 80 mls/hr 02/28/25 06:00 02/28/25 09:22 IV 02/28/25 23:59 80 mls/hr INFUSION DAVID Administration Sodium Chloride 0 ml 02/28/25 06:00 Normal Saline Flush 10 Ml Syr IV 02/28/25 23:59 PRN PRN Sodium Chloride 0 ml 02/28/25 06:00 Normal Saline 10 Ml Vial IJ 02/28/25 23:59 DIRECTED PRN Sterile Water 0 ml 02/28/25 06:00 Water,Injection,Sterile 10 Ml Vial IJ 02/28/25 23:59 DIRECTED PRN PFSH Active Problems Active Problems: Problem Status Onset Code Sensorineural hearing loss, bilateral Acute H90.3 Concussion Chronic S06.0XAA Erectile dysfunction after prostate brachytherapy Chronic N52.35 Bipolar affective disorder, depressed, mild Chronic F31.31 Tubular adenoma Chronic D36.9 Asymmetrical left sensorineural hearing loss Chronic H90.42 Impacted cerumen of both ears Chronic H61.23 Actinic keratosis Chronic L57.0 Essential hypertension Chronic 12/26/12 I10 Hyperlipidemia Chronic E78.5 Medical History Medical History History of prostate cancer s/p radiation, followed in [place]. Diverticulosis Umbilical hernia Tobacco Smoking/Tobacco Use Status: Current-Occasional Passive smoking exposure: No Alcohol Alcohol Intake: former Substance Use Substance use: Occasionally Substance use type: marijuana Vital Signs and Lab Results Vital Signs Most Recent Vital Signs in EMR: Most Recent Vital Signs Temp Pulse Resp BP Pulse Ox 36.4 C L 73 16 141/83 H 93 02/26/25 10:57 02/26/25 10:57 02/26/25 10:57 02/26/25 10:57 02/26/25 10:57 Anesthesia Assessment and Plan Anesthesia History Personal History: No History of Anesthesia Complications Family History: No Family History of Anesthesia Complications Exercise Tolerance Exercise Tolerance: Metabolic Equivalents>4 Pertinent Negatives Pertinent Negatives: No Symptoms of GERD Cardiac & Pulmonary Exam Cardiac Exam: Normal S1/S2 Heart Sounds Pulmonary Exam: Clear Bilateral Breath Sounds Implantable Cardiac Device Does patient have a Pacemaker or an ICD?: No Airway Exam Known Difficult Airway: No Mallampati Class: 2 Mouth Opening: Normal (> 3cm) Thyromental Distance: Greater than 3 cm Neck Range of Motion: Full ROM Neck Circumference: Normal Teeth Condition: Normal Dentition ASA Classification ASA Score: ASA 2 Emergency Case?: No NPO Status NPO Status: NPO Clears >2 hours, Solids >8 hours Anesthesia Plan Resuscitation Status: Full Code Anesthesia Technique: General Anesthesia Airway Planned: Natural Airway Monitors Used: Standard Monitors
--- NOTE | 2025-02-28 11:12 | BOWEL_PTH ---
PATIENT: Glen Schulte JR LOC: [facility] U#:[id number] AGE/SX: 79/M ROOM: RE02/28/[address]: Alba Tipton : 1945 BED: DIS: 02/28/2025 SPEC #: [id number] RECD: 02/28/25 12:31 STATUS: ARSALAN RE #: [id number] NATHALIE: 02/28/25 11:[address]: Alba Tipton DEPT: Surgical Specimen RECD BY: Shea Rodriguez ENTERED: 02/28/25 12:32 SP TYPE: Bowel OTHR DR: Elaina Beltran Tissues: 1 - BIOPSY BOWEL Procedures: GROSS AND MICRO LEVEL 4 Comments: [id number]
--- NOTE | 2025-02-28 11:24 | W.PM.DSUDISC ---
Date of service: 02/28/25 Discharge Plan Disposition Patient Disposition: Home Condition: Good Discharge Details Reason For Visit: History of colon polyps Attending Provider: Alba Tipton Primary Care Provider: Elaina Beltran Recommendations for Follow Up Recommended tests to be ordered by follow up provider: Follow up pathology Home Meds and New Rx's Prescriptions: Continued diclofenac sodium 3 % gel 1 applic topical BID PRN (Reason: actinic keratoses) tamsulosin [Flomax] 0.4 mg capsule 0.8 mg PO DAILY Qty: 180 3RF triamcinolone acetonide 0.025 % ointment 1 applic Topical BID Qty: 80 4RF escitalopram oxalate 20 mg tablet See Rx Instructions .ROUTE .COMPLEX Qty: 90 3RF Dose Instruction: TAKE ONE TABLET BY MOUTH EVERY DAY Rx Instructions: TAKE ONE TABLET BY MOUTH EVERY DAY rosuvastatin 10 mg tablet 10 mg PO DAILY Qty: 90 3RF amlodipine 5 mg tablet 5 mg PO DAILY Qty: 90 3RF Discontinued bisacodyl [Dulcolax (bisacodyl)] 5 mg tablet,delayed release (DR/EC) 5 mg PO ONCE Qty: 4 0RF Rx Instructions: Take per colonoscopy instructions provided by ordering providers office polyethylene glycol 3350 17 gram/dose powder 17 g PO ONCE Qty: 238 0RF Rx Instructions: Take per colonoscopy instructions provided by ordering providers office Discharge Instructions Additional Instructions: Your colonoscopy went well today. He did have 2 small polyps which were removed. These will be sent to pathology. We will contact you once these results return and make recommendations for potential next colonoscopy. If you have any questions or concerns please contact the general surgery office. 1. If tolerated, consume a soft, low fiber diet for 1-2 days. 2[address] Do not drive, drink alcohol, operate machinery, make critical decisions, or do activities that require coordination or balance for 24 hours. 3. Because air was put into your colon during the procedure, expelling air from your rectum (passing gas or farting) is normal. 4. You may not have a bowel movement for 1-3 days because of the colonoscopy prep. This is normal. 5. Go directly to the emergency room if you notice any of the following: Develop chills (warm to touch), or if you have a thermometer and your temperature is above 101 Difficulty breathing or difficultly swallowing Persistent vomiting Severe abdominal pain, other than gas cramps Severe chest pain Black, tarry stools Any bleeding ? exceeding one tablespoon 6. Call your physician if the site where your intravenous was started becomes red, swollen, painful, and warm to touch. 7. Your physician has reviewed your pre-procedure medications. Please continue to take those medications as previously ordered. You will be given specific information/education regarding any changes to your medications before leaving. Stand Alone Forms: Portal Information Activity:: Activity as Tolerated Diet:: As Tolerated Discharge Orders Discharge Orders: Discharge Order (Routine); Ordered 02/28/25 Ordered By: Alba Tipton
[2025-02-28 11:25] VITALS: BP 104/66; PULSE 70; RESP 17; TEMP 36.6; O2SAT 93
--- NOTE | 2025-02-28 11:26 | COLE_ITS ---
Date of service: 02/28/25 Time of Service: 11:26 Colonoscopy Report Date of procedure: 02/28/25 Pre-op diagnosis general: History of colon polyps Post-op diagnosis procedure note: same Procedure: Colonoscopy with polypectomy Surgeon: Alba Tipton Anesthesia Type: General:No Airway Estimated blood loss (mL): 1 Pathology: other (Colon polyps at 30cm ) Complications: None Disposition: PACU Indications: Patient is an 79-year-old male who presents for a colonoscopy due to a personal history of colon polyps. He denies any recent changes in his bowel habits. Prep: Miralax/Dulcolax Procedure Start Time: 11:00 Procedure End Time: 11:21 Retraction Time: 16 Findings: 2 small polyps at 30 cm removed with cold forceps. Diverticulosis throughout majority of the colon. Procedure Description: The patient was brought to the endoscopy suite and placed in the left lateral decubitus position. After induction of IV sedation, a digital rectal exam was performed.. Digital exam was normal. The colonoscope was then passed to the cecu m without difficulty. Cecal intubation was confirmed by the identification of the appendiceal orifice and the ileocecal valve. Upon withdrawing the colonoscope, all mucosal surfaces were inspected. The prep was noted to be adequate. At 30cm, there were 2 small polyps, which were removed using cold forceps in its entirety. Specimens were retrieved for pathological analysis. There was no other evidence of mucosal abnormality, polyp or cancer. There was evidence of diverticulosis throughout the majority of the colon. Retroflexion in the rectum was unremarkable. The patient tolerated the procedure well with no complications. Postoperatively, the patient was transferred to the recovery room in stable condition. [place] Bowel Prep [place] Bowel Prep Right Colon: 3 Left Colon: 3 Transverse Colon: 3 Total Score: 9
[2025-02-28 11:55] VITALS: BP 131/78; PULSE 65; RESP 18; TEMP 36.6; O2SAT 95
[2025-02-28 12:06] VITALS: BMI 30.2
--- NOTE | 2025-02-28 12:06 | W.ANESPOSTOP ---
Postoperative Evaluation Date, Time and Location Date Performed: 02/28/25 Time Performed: 11:38 Patient Location: Day Surgery Unit Vital Signs Most Recent Imported Vital Signs: Most Recent Vital Signs Temp Pulse Resp BP Pulse Ox 36.6 C 65 18 131/78 95 02/28/25 11:55 02/28/25 11:55 02/28/25 11:55 02/28/25 11:55 02/28/25 11:55 Pain Score Most Recent Pain Score: Most Recent Pain Score Pain Level 0 02/28/25 11:55 Assessment Mental Status: Awake (Alert & Oriented to Patient Baseline) Airway and Respiratory Function: Patent airway with normal (patient baseline) respiratory exam Cardiovascular Function: Hemodynamically Stable Hydration Status: Adequately Hydrated Nausea & Vomiting: No Nausea or Vomiting Pain: Pt. Denies Any Pain Peripheral Nerve Block: Patient did not receive a nerve block
== END 2025-02-28 12:15 | disposition home or self-care (01) ==
PROVIDERS: PCP Family Medicine; Visit Provider Student in an Organized Health Care Education/Training Program
PROC: 0DJD8ZZ Inspection of Lower Intestinal Tract, Via Natural or Artificial Opening Endoscopic (ICD-10-PCS; CPT 45378; principal; 2025-02-28 09:45)
DX: Z12.11 Encounter for screening for malignant neoplasm of colon (principal); K63.5 Polyp of colon; K57.30 Diverticulosis of large intestine without perforation or abscess without bleeding
CPT/HCPCS: 45380; 88305; J2704